=== PATIENT | female | born 1990 | race Caucasian/White ===

== ENCOUNTER 2024-03-20 16:32 | Inpatient (IN) | payer OTHER ==
[~2024-03-20] VITALS: Ht 149.9 cm; Wt 76.7 kg
--- NOTE | ~2024-03-20 | OR ---
[facility] [address] [place], [place] [address] Draft DATE OF OPERATION: 03/22/2024 SURGEON: Jacquie Rush MD IT APPLICATIONS DEVELOPER: Acosta. PREOPERATIVE DIAGNOSIS: Abdominal rectus hematoma. POSTOPERATIVE DIAGNOSIS: Abdominal rectus hematoma. PROCEDURE: Exploratory laparotomy, evacuation of hematoma. ANESTHESIA: General ET. ESTIMATED BLOOD LOSS: 50 mL with the procedure approximately 1500 mL of hematoma. DRAINS: Wallace catheter. INDICATIONS AND FINDINGS: The patient is a 33-year-old female, 1, para 1, who underwent primary section on March 20 by patient request complicated by preeclampsia with severe features. She initially seemed to do very well postoperatively, but she was maintained on magnesium because of her severe range blood pressures. However, her blood count a day and a half after surgery was found to have a hemoglobin of 5. CT was done which confirmed rectus hematoma. She is now being treated for this. At the time of surgery, exam under anesthesia revealed a fullness in the lower abdomen, right greater than left. DESCRIPTION OF PROCEDURE: The patient was prepped and draped in the supine position. The previous jaydon were removed. The subcu was opened easily and the fascial incision was cut and the sutures were removed. There was a large hematoma over the rectus. There was a small pumping vessel on the right lower aspect of the rectus and this was grasped with hemostats and cauterized. The abdomen was irrigated and inspected and there did not appear to be any PATIENT NAME: EDUAR NGUYEN OPERATIVE REPORT DATE OF : [birth year] REPORT #: [id number] PHYSICIAN: JACQUIE RUSH MD PCP: NO PRIMARY CARE PHYSICIAN REPORT IS CONFIDENTIAL AND NOT TO BE RELEASED WITHOUT AUTHORIZATION [address] [address] [place] other pumpers. The area was raw, however. Bleeding points were controlled with cautery. Tisseel was then sprayed over the rectus layer to further aid in hemostasis. Following this, the fascia was reclosed from each angle to the midline with a running suture of 0 Vicryl. The subcu was reapproximated with a running suture of 3-0 Vicryl. The skin was closed with jaydon. All sponge and needle counts were correct. She tolerated the procedure well and was taken to the recovery room in good condition. MD LEBRON ColinW/MODL /[id number] Copies: ~ PATIENT NAME: EDUAR NGUYEN OPERATIVE REPORT DATE OF : [birth year] REPORT #: [id number] PHYSICIAN: JACQUIE RUSH MD PCP: NO PRIMARY CARE PHYSICIAN REPORT IS CONFIDENTIAL AND NOT TO BE RELEASED WITHOUT AUTHORIZATION
[2024-03-20 16:52] LABS: HEMOGLOBIN 10.1 g/dL (12.0-18.0); MCHC 33.5 g/dl (30-36); MCV 89.4 fl (81-99); RBC 3.36 M/ul (4.3-5.7); RDW 16.4 (10.5-15.0)
[2024-03-20 17:03] LABS: CREATININE, SERUM 1.51 mg/dL (0.55-1.02)
[2024-03-20 17:17] LABS: CREATININE, RANDOM URINE 124.6 mg/dL (NOT ESTABLISHED)
[2024-03-20] MEDS ORDERED: LABETALOL HCL 100 MG/20 ML MDV ONE (17:22)
[2024-03-20] MEDS ORDERED: NIFEdipine 10 MG CAP ONE (17:26)
[2024-03-20] MEDS ORDERED: NIFEdipine 10 MG CAP PO ONE (17:30)
[2024-03-20] MEDS ORDERED: LABETALOL HCL 100 MG/20 ML MDV IV PRN (17:30)
[2024-03-20 17:50] LABS: PROTEIN/CREATININE RATIO 8.21 mg/mg (0.010-0.107)
[2024-03-20] MEDS ORDERED: LIDOCAINE 2% VISCOUS 6 ML SYR TOP ONE ×2 (18:00→19:45)
[2024-03-20] MEDS ORDERED: SOD+POT BICARB/CITRIC ACID 2 EA TABLET.EFF PO ONE (18:00)
[2024-03-20] MEDS ORDERED: LACTATED RINGER'S 1,000 ML IV PRN (18:00)
[2024-03-20 18:13] LABS: AMPHETAMINES, URINE NEGATIVE (NEGATIVE); BARBITURATES, URINE NEGATIVE (NEGATIVE); BENZODIAZEPINE, URINE NEGATIVE (NEGATIVE); BUPRENORPHINE, URINE NEGATIVE (NEGATIVE); CANNABINOID, URINE POSITIVE (NEGATIVE); COCAINE, URINE NEGATIVE (NEGATIVE); ECSTASY, URINE NEGATIVE (NEGATIVE); FENTANYL, URINE NEGATIVE (NEGATIVE); METHADONE, URINE NEGATIVE (NEGATIVE); OPIATES, URINE NEGATIVE (NEGATIVE); OXYCODONE, URINE NEGATIVE (NEGATIVE); PHENCYCLIDINE, URINE NEGATIVE (NEGATIVE)
[2024-03-20] MEDS ORDERED: MAGNESIUM SULFATE 500 ML IV SCH ×2 (18:15→19:45)
[2024-03-20] MEDS ORDERED: LACTATED RINGER'S 1,000 ML IV SCH ×2 (18:15→19:48)
[2024-03-20] MEDS ORDERED: CALCIUM GLUCONATE 1,000 MG/10 ML VIAL IV PRN ×2 (18:15→19:45)
[2024-03-20] MEDS ORDERED: TRANEXAMIC ACID IN NACL,ISO-OS 0 ML IV ONE (18:24)
[2024-03-20] MEDS ORDERED: LIDOCAINE HCL 2% 5 ML SDV ONE (18:24)
[2024-03-20] MEDS ORDERED: BUPIVACAINE 0.75% IN DEXTROSE 2 ML AMP ONE ×2 (18:24→18:48)
[2024-03-20] MEDS ORDERED: OXYTOCIN 10 UNITS/ML VIAL ONE (18:25)
[2024-03-20] MEDS ORDERED: SODIUM CHLORIDE 0.9% 40 ML IV ONE ×2 (18:25→19:27)
[2024-03-20] MEDS ORDERED: fentaNYL citrate 100 MCG/2 ML VIAL ONE (18:25)
[2024-03-20] MEDS ORDERED: MORPHINE SULFATE 1 MG/ML VIAL ONE (18:25)
[2024-03-20] MEDS ORDERED: ePHEDrine sulfate 50 MG/ML AMP ONE ×2 (18:25→19:14)
[2024-03-20] MEDS ORDERED: ondansetron HCL 4 MG/2 ML VIAL ONE (18:44)
[2024-03-20] MEDS ORDERED: DEXAMETHASONE SOD PHOS 4 MG/ML VIAL ONE ×2 (18:44→19:27)
[2024-03-20] MEDS ORDERED: CEFAZOLIN SODIUM 2 GM/20 ML SYR IV ONE (18:45)
[2024-03-20] MEDS ORDERED: Ropivacaine HCl 0.5% 30 ML VIAL ONE (19:27)
[2024-03-20] MEDS ORDERED: dexmedeTOMIDine HCl 200 MCG/2 ML VIAL ONE (19:27)
[2024-03-20] MEDS ORDERED: PHENYLEPHRINE HCL 10 MG/ML VIAL ONE (19:36)
[2024-03-20 19:40] LABS: ABO B; ANTIBODY SCREEN POSITIVE; RH NEGATIVE
[2024-03-20 19:41] LABS: ANTIBODY IDENTIFICATION ANTI-D
[2024-03-20] MEDS ORDERED: OXYCODONE HCL 5 MG TAB PO PRN (19:45)
[2024-03-20] MEDS ORDERED: METOCLOPRAMIDE HCL 10 MG/2 ML SDV IV PRN (19:45)
[2024-03-20] MEDS ORDERED: PROMETHAZINE HCL 25 MG SUPP PR PRN (19:45)
[2024-03-20] MEDS ORDERED: ondansetron HCL 4 MG/2 ML VIAL IV PRN ×2 (19:45→20:15)
[2024-03-20] MEDS ORDERED: PROMETHAZINE HCL 25 MG TAB PO PRN (19:45)
[2024-03-20] MEDS ORDERED: MEASLES,MUMPS&RUBELLA VACCINE 1 VIAL VIAL SUB-Q SCH (19:45)
[2024-03-20] MEDS ORDERED: PROCHLORPERAZINE EDISYLATE 10 MG/2 ML VIAL IV PRN (19:45)
[2024-03-20] MEDS ORDERED: bisacodyL 10 MG SUPP PR PRN (19:45)
[2024-03-20] MEDS ORDERED: OXYTOCIN/0.9 % SODIUM CHLORIDE 500 ML IV SCH (19:45)
[2024-03-20] MEDS ORDERED: IBUPROFEN 800 MG TAB PO SCH (20:00)
[2024-03-20] MEDS ORDERED: HYDROmorphone HCL 1 MG/ML SYR IV PRN (20:15)
[2024-03-20] MEDS ORDERED: fentaNYL citrate 50 MCG/ML SDV IV PRN (20:15)
[2024-03-20] MEDS ORDERED: diphenhydrAMINE HCL 50 MG/ML VIAL IV PRN (20:15)
[2024-03-20] MEDS ORDERED: MORPHINE SULFATE 4 MG/ML VIAL IV PRN (20:15)
[2024-03-20] MEDS ORDERED: IBLOOD GLUCOSE TEST STRIP 1 EA TEST VI PRN (20:15)
[2024-03-20] MEDS ORDERED: NALOXONE HCL 0.4 MG SYR IV PRN ×2 (20:15)
[2024-03-20] MEDS ORDERED: SENNOSIDES/DOCUSATE 1 EA TAB PO SCH (21:00)
[2024-03-20] MEDS ORDERED: SIMETHICONE 125 MG TABLET CHEWABLE PO SCH (21:00)
--- NOTE | 2024-03-20 22:22 | NUR ---
03/20/242221 Emmanuel De Anda 1949-PT ARRIVED BACK TO [facility] RM 101 AWAKE ON RA WITH SATS GREATER THAN 95%. PT WITH 20G IV IN L WRIST WITH LR W/PIT INFUSING. NO S/SX INFILTRATION. RICKI CDI. PT HAS 2ND IV SITE IN LFA, 18G, INFUSING MAG WITH LR PIGGYBACK. RICKI CDI. NO S/SX INFILTRATION. 1956-VS STABLE. PT DENIES PAIN OR NAUSEA. FUNDAL CHECK COMPLETED. SPINAL AT UMBILLICUS. HOB ELEVATED SLIGHTLY TO APPROX 15 DEGREES AT PT REQUEST. 2002-PT ASKING FOR WATER. DR. DAVIES APPROVES. PT TAKING SMALL SIPS. APPEARS TO BE TOLERATING WELL. 2004-SATS REMAIN STABLE ON RA AT 95% OR GREATER. RR EVEN AND UNLABORED. PT CONT TO DENY PAIN OR NAUSEA. DR. DAVIES AT PTS BEDSIDE SPEAKING WITH PT. INSTRUCTIONS RECEIVED TO NOTIFY DR. DAVIES IF BP'S GREATER THAN 160/110. 2006-PTS FRIEND ARRIVED TO ROOM AND BROUGHT PT SOME OF HER PERSONAL BELONGINGS FROM HOME. REMAINS IN ROOM. PT SIG OTHER IN AND OUT OF ROOM AND NURSERY WITH BABY PROVIDING PT WITH UPDATES AND PICTURES. 2022-NEW BAG OF 30 UNITS IV PIT STARTED IN 5OOML LR. SATS CONT TO REMAIN STABLE ON RA AT 95% OR GREATER. DENIES PAIN AND NAUSEA. PT VISITING WITH FRIEND. EDUCATION PROVIDED ON FUNDAL CHECKS, EPIDURAL, DEEP BREATHING AND COUGHING, AND LI CATH. 2038-SMALL FIFTY CENT PIECE SIZE CLOT NOTED WITH FUNDAL CHECK. AMANDEEP PAD REPLACED. PAD WEIGHED, 76ML EBL. [facility] RN UPDATED. 2044-ADDTIONAL FUNDAL CHECK PERFORMED. NOTED TO BE FIRM, -2 BELOW UMBILLICUS, MIDLINE, LIGHT RUBRA LOCHIA W/SMALL CLOT, AND NO FOUL ODOR NOTED. LI DRAINING TO GRAVITY. URINE NOTED TO BE CLR, LIGHT YELLOW. 2099-FUNDAL CHECK COMPLETED. FUNDUS IS FIRM, -2 BELOW UMBILLICUS, MIDLINE, LIGHT RUBRA LOCHIA, AND NO ODOR NOTED. SPINAL NOW AT INGUINAL LEVEL. PT REMAINS UNABLE TO WIGGLE TOES WHEN TRYING. PT DENIES PAIN OR NAUSEA WHEN ASKED. VSS. IVS CONT TO INFUSE WITHOUT ISSUES. LI CONT TO DRAIN TO GRAVITY WITH PALE, CLR, YELLOW URINE. C-SEC INCISION RICKI THURMAN CDI. 2104-REPORT GIVEN TO [facility]BC RN. PASSED ALONG BP NOTIFICATION PARAMETERS TO [facility]BC RN. CALL LIGHT GIVEN, BED IN LOW POSITION, WHEELS LOCKED, SIDERAILS UP X2, AND FRIEND REMAINS AT BEDSIDE.
[2024-03-20 22:31] VITALS: BP 154/80
[2024-03-20] MEDS ORDERED: ACETAMINOPHEN 500 MG TAB PO SCH (23:55)
[2024-03-21] MEDS ORDERED: NIFEdipine 10 MG CAP PO PRN ×3 (02:30)
[2024-03-21] MEDS ORDERED: NIFEdipine 10 MG CAP ONE (03:37)
[2024-03-21] MEDS ORDERED: LACTATED RINGER'S 1,000 ML IV SCH (05:00)
[2024-03-21 05:35] LABS: HEMATOCRIT 30.1 % (35.0-50.0); HEMOGLOBIN 10.1 g/dL (12.0-18.0); MCH 29.9 (27-36); MCHC 33.5 g/dl (30-36); MCV 89.3 fl (81-99); RBC 3.38 M/ul (4.3-5.7); RDW 15.9 (10.5-15.0)
[2024-03-21 05:56] LABS: ALBUMIN 1.9 g/dL (3.4-5.0); ALBUMIN/GLOBULIN RATIO 0.5 (1.1-2.4); BILIRUBIN, TOTAL 0.1 ng/dL (0.2-1.0); BUN/CREATININE RATIO 17.39 (6.0-28.6); CALCIUM 7.9 mg/dL (8.5-10.1); CREATININE, SERUM 1.38 mg/dL (0.55-1.02); PROTEIN, TOTAL 5.7 g/dL (6.4-8.2)
[2024-03-21 06:30] LABS: ABO B; ANTIBODY SCREEN POSITIVE; FETAL HEMOGLOBIN SCREEN NEGATIVE; RH NEGATIVE
[2024-03-21 06:31] LABS: ANTIBODY IDENTIFICATION ANTI-D; RHIG STATUS NOT A CANDIDATE
[2024-03-21] MEDS ORDERED: ENOXAPARIN SODIUM 40 MG/0.4 ML SYR SUB-Q SCH (09:00)
[2024-03-21] MEDS ORDERED: NICOTINE 14 MG/24 HR 1 EA TDSY TD SCH (09:00)
--- NOTE | 2024-03-21 09:06 | PR ---
[facility] [address] [facility] [place], [place] [address] Signed PP Progress Notes Datetime Report Generated by CPCrystal: 03/21/2024 09:06 SUBJECTIVE: [id number] Pain: Within Normal Limits Nausea/Vomiting: Denies Flatus: No Vital Signs: [id number] Vital Signs: Reviewed Notable Details: HTN--not severe Cardiovascular: Normal Respiratory: Normal Abdomen/Uterus: Abnormal Lochia: Normal Vulva/Perineum: Not Done Breasts: Not Done CVA Tenderness: Not Done Extremities: Normal Incision: Normal Progress: Normal Exam Comments: Abdomen with active BS. Fundus firm, NT @ U-2. H/H 10.1/30.1, WBC 17, plat 124k (same) Na 127, K 5, BUN/Creat 24/1.38 Nl LFTs Mag 6 IMPRESSION/PLAN/PROCEDURES: [id number] Impression: Normal Progression; Induced Hypertension Other Impression: Smoker Other Plans: Continue mag, begin pumping Progress Notes: BPs still elevated though no severe range since 0700. Will continue mag through this evening and reassess. Desires nicotine patch--will start Signing Physician: Fay Rush MD Copies: ~ *Electronically Signed* 03/21/24905 FAY RUSH MD PATIENT NAME: EDUAR NGUYEN PROGRESS NOTE DATE OF : [birth year] PHYSICIAN: FAY RUSH MD RPT #: [id number] REPORT IS CONFIDENTIAL AND NOT TO BE RELEASED WITHOUT AUTHORIZATION
[2024-03-21] MEDS ORDERED: HYDROmorphone HCL 2 MG TAB PO PRN (17:15)
--- NOTE | 2024-03-21 18:01 | OR ---
[facility] [address] [place], [place] [address] Signed DATE OF OPERATION: 03/20/2024 SURGEON: Fay Rush MD FUEL CELL TEST ENGINEER: SARAY Acosta DO PREOPERATIVE DIAGNOSIS: 36+ week with severe preeclampsia, desire for primary section. POSTOPERATIVE DIAGNOSIS: 36+ week with severe preeclampsia, desire for primary section, delivered. PROCEDURE: Primary section with low segment transverse uterine incision. ANESTHESIA: Spinal. ESTIMATED BLOOD LOSS: 500 mL. DRAINS: Wallace catheter. INDICATIONS AND FINDINGS: The patient is a 33-year-old female, 1, para 0, who was admitted at 36 and 4/7 weeks by late ultrasound for preeclampsia with severe features. The patient desired primary section. Her has been complicated by late registration, history of drug use, smoking, pyelonephritis during the as well as history of chronic kidney disease from polycystic kidneys. Unfortunately, her baseline kidney function is unknown. Her kidney function has significantly worsened, however, since her pyelonephriti. Her creatinine at her discharge was 1.09 and is now 1.5. Platelets also declined to 124,000. She did receive course of steroids at approximately 30 weeks because of the possibility she might require delivery at that time, but has not received them since then. At the time of surgery, she was delivered a little boy via lower segment transverse uterine incision from the ROT position with Apgars of 7 and 8 and weight of 5 pounds 6 ounces. The uterus, tubes, ovaries, and placenta appeared normal. The placenta did appear calcified. Electronically Signed By: FAY RUSH MD 03/21/24 1804 PATIENT NAME: EDUAR NGUYEN OPERATIVE REPORT DATE OF : 92 REPORT #: [id number] PHYSICIAN: FAY RUSH MD PCP: NO PRIMARY CARE PHYSICIAN REPORT IS CONFIDENTIAL AND NOT TO BE RELEASED WITHOUT AUTHORIZATION [facility] [address] [place], [place] [address] Signed DESCRIPTION OF PROCEDURE: The patient was prepped and draped in the supine position. A Pfannenstiel skin incision was made and carried down through the fascia. The incision was extended laterally. The inferior and superior fascial flaps were then created. The muscles were bluntly divided and the peritoneum opened bluntly and extended bluntly. The Gustavo retractor was placed. The uterine incision was made at the upper aspect of the peritoneal reflection. The baby was delivered with the above findings and handed off to the pediatric staff in attendance. The placenta was expressed and the uterus explored with a lap tape assuring no remaining fragments. The edges of the incision were identified. The uterus was closed in 2 layers using 0 Monocryl. The first layer was a running locking stitch and the second was a vertical imbricating stitch. Good hemostasis was noted. The peritoneum was then closed in a running suture of 3-0 Vicryl after removal of the retractor. The muscles were brought together with interrupted sutures of 0 Vicryl. Bleeding points were controlled with cautery. The fascia was closed from each angle to the midline with a running suture of 0 Vicryl. The subcu space was closed with a running suture of 3-0 Vicryl and the skin was closed with jaydon. All sponge and needle counts were correct. She tolerated the procedure well and was taken to the recovery room in good condition. Fay Rush MD PJW/MODL /[id number] Copies: ~ Electronically Signed By: FAY RUSH MD 03/21/24 1801 PATIENT NAME: EDUAR NGUYEN OPERATIVE REPORT DATE OF : [birth year] REPORT #: [id number] PHYSICIAN: FAY RUSH MD PCP: NO PRIMARY CARE PHYSICIAN REPORT IS CONFIDENTIAL AND NOT TO BE RELEASED WITHOUT AUTHORIZATION
--- NOTE | 2024-03-21 18:45 | PR ---
[facility] [address] [facility] [place], [place] [address] Signed PP Progress Notes Datetime Report Generated by CPCrystal: 03/21/2024 18:45 SUBJECTIVE: [id number] Pain: Within Normal Limits Pain Comments: RUQ pain improving. Nausea/Vomiting: Present Flatus: No Vital Signs: [id number] Vital Signs: Reviewed Notable Details: HTN--not severe Cardiovascular: Normal Respiratory: Normal Abdomen/Uterus: Abnormal Lochia: Normal Vulva/Perineum: Not Done Breasts: Not Done CVA Tenderness: Not Done Extremities: Normal Incision: Normal Progress: Normal Exam Comments: Abdomen soft but tender in RUQ. Fundus firm, NT @ U-2. Last mag level 7.1 IMPRESSION/PLAN/PROCEDURES: [id number] Impression: Induced Hypertension Other Impression: Abdominal pain--suspect gas Other Plans: heat to abdomen, stop mag Progress Notes: BPs doing better and no severe range BPs today. I suspect some of her symptoms are related to mag and it is likely contributing to bowel inertia and nausea. Lab unable to get mag level tonight so will stop mag know and observe her BPs and other symptoms. Will repeat CBC, BMP in the am. Signing Physician: Fay Rush MD Copies: ~ *Electronically Signed* 03/21/24 5166 FAY RUSH MD PATIENT NAME: EDUAR NGUYEN PROGRESS NOTE DATE OF : 92 PHYSICIAN: FAY RUSH MD RPT #: [id number] REPORT IS CONFIDENTIAL AND NOT TO BE RELEASED WITHOUT AUTHORIZATION
[2024-03-22 05:40] LABS: BASOPHILS 0.3 % (0-2); EOSINOPHILS 0.8 % (0-6); HEMATOCRIT 14.7 % (35.0-50.0); MCH 30.9 (27-36); MCHC 34.1 g/dl (30-36); MCV 90.5 fl (81-99); MONOCYTES 6.4 % (0-12); NEUTROPHILS 74.5 % (39-80); PLATELET COUNT 151 K/uL (140-440); RBC 1.62 M/ul (4.3-5.7); RDW 16.5 (10.5-15.0)
[2024-03-22 05:50] LABS: ANION GAP 13.2 (7-21); BUN/CREATININE RATIO 17.64 (6.0-28.6); CALCIUM 7.2 mg/dL (8.5-10.1); CREATININE, SERUM 1.7 mg/dL (0.55-1.02); POTASSIUM 5.2 mmol/L (3.5-5.1)
[2024-03-22 06:12] LABS: IS CROSSMATCH COMPATIBLE
--- NOTE | 2024-03-22 06:37 | PR ---
[facility] [address] [facility] [place], [place] [address] Signed PP Progress Notes Datetime Report Generated by SONIA: 03/22/2024 06:37 SUBJECTIVE: [id number] Pain: Abnormal Pain Comments: c/o LUQ pain, dizzy when sitting up Nausea/Vomiting: Present Flatus: No Vital Signs: [id number] Vital Signs: Reviewed Notable Details: HTN--not severe Cardiovascular: Normal Respiratory: Normal Abdomen/Uterus: Abnormal Lochia: Normal Vulva/Perineum: Not Done Breasts: Not Done CVA Tenderness: Not Done Extremities: Normal Incision: Normal Progress: Normal Exam Comments: Abdomen with occ BS. H/H 5.0/14.7, plat 151k Na 131, K 5.2, BUN 30, Creat 1.70 IMPRESSION/PLAN/PROCEDURES: [id number] Impression: Induced Hypertension Other Impression: Severe anemia Other Plans: Blood tx now xs 2 units, CT scan abd/pelvis Procedures: Transfusion Other Procedures: CT Progress Notes: Pt w/ severe anemia this am and suspect intraabdominal bleeding though her other VS remain stable w/o tachycardia, oliguria, hypotension which has delayed her dx. Will transfuse now and do CT of abdomen and pelvis to determine source. This may mean another surgery for her and this was discussed w/ patient and partner. Elevated creatinine--worsening since yesterday and may reflect the decreased perfusion from her severe anemia. Further treatment will depend on the CT results. Signing Physician: Fay Rush MD *Electronically Signed* 03/22/24 0637 FAY RUSH MD PATIENT NAME: EDUAR NGUYEN PROGRESS NOTE DATE OF : 92 PHYSICIAN: FAY RUSH MD RPT #: [id number] REPORT IS CONFIDENTIAL AND NOT TO BE RELEASED WITHOUT AUTHORIZATION [address] [place], [place] [address] Signed Copies: ~ *Electronically Signed* 03/22/24 06 FAY RUSH MD PATIENT NAME: EDUAR NGUYEN PROGRESS NOTE DATE OF : 92 PHYSICIAN: FAY RUSH MD RPT #: [id number] REPORT IS CONFIDENTIAL AND NOT TO BE RELEASED WITHOUT AUTHORIZATION
--- NOTE | 2024-03-22 08:33 | PR ---
[facility] [address] [facility] [place], [place] [address] Signed PP Progress Notes Datetime Report Generated by SONIA: 03/22/2024 08:33 SUBJECTIVE: [id number] Pain: Abnormal Pain Comments: pain approx same Nausea/Vomiting: Present Flatus: No Vital Signs: [id number] Vital Signs: Reviewed Notable Details: continued HTN Cardiovascular: Normal Respiratory: Normal Abdomen/Uterus: Abnormal Lochia: Normal Vulva/Perineum: Not Done Breasts: Not Done CVA Tenderness: Not Done Extremities: Normal Incision: Normal Progress: Normal Exam Comments: Abdomen with occ BS. H/H 5.0/14.7, plat 151k Na 131, K 5.2, BUN 30, Creat 1.70 IMPRESSION/PLAN/PROCEDURES: [id number] Impression: Induced Hypertension Other Impression: rectus hematoma Other Plans: check hemogram now, to OR Procedures: Transfusion Other Procedures: CT Progress Notes: Imaging has returned and c/w rectus hematoma. Will proceed w/ return to the OR. Discussed w/ pt. Will repeat CBC now and type and cross for 2 more units. Signing Physician: Fay Rush MD Copies: ~ *Electronically Signed* 03/22/24 0833 FAY RUSH MD PATIENT NAME: EDUAR NGUYEN PROGRESS NOTE DATE OF : 92 PHYSICIAN: FAY RUSH MD RPT #: [id number] REPORT IS CONFIDENTIAL AND NOT TO BE RELEASED WITHOUT AUTHORIZATION
[2024-03-22 08:44] LABS: HEMATOCRIT 24.7 % (35.0-50.0); HEMOGLOBIN 8.2 g/dL (12.0-18.0); MCH 29.3 (27-36); MCHC 33.2 g/dl (30-36); MCV 88.2 fl (81-99); RBC 2.8 M/ul (4.3-5.7); RDW 15.6 (10.5-15.0)
[2024-03-22] MEDS ORDERED: fentaNYL citrate 100 MCG/2 ML VIAL ONE (08:57)
[2024-03-22] MEDS ORDERED: KETAMINE in NS 50 MG/5 ML SYR ONE (08:57)
[2024-03-22] MEDS ORDERED: MIDAZOLAM HCL 2 MG/2 ML VIAL ONE (08:57)
[2024-03-22] MEDS ORDERED: MORPHINE SULFATE 1 MG/ML VIAL ONE (08:57)
[2024-03-22] MEDS ORDERED: LIDOCAINE HCL 2% 5 ML SDV ONE ×2 (08:58)
[2024-03-22] MEDS ORDERED: propofoL 200 MG/20 ML VIAL ONE (08:58)
[2024-03-22] MEDS ORDERED: ROCURONIUM BROMIDE 50 MG/5 ML SYR ONE (08:58)
[2024-03-22] MEDS ORDERED: PHENYLEPHRINE HCL 10 MG/ML VIAL ONE (09:16)
[2024-03-22] MEDS ORDERED: ePHEDrine sulfate 50 MG/ML AMP ONE (09:21)
[2024-03-22] MEDS ORDERED: ondansetron HCL 4 MG/2 ML VIAL ONE (09:53)
[2024-03-22] MEDS ORDERED: DEXAMETHASONE SOD PHOS 4 MG/ML VIAL ONE ×2 (09:53→10:05)
[2024-03-22 10:04] LABS: ALBUMIN 1.4 g/dL (3.4-5.0); ALBUMIN/GLOBULIN RATIO 0.5 (1.1-2.4); ANION GAP 12.4 (7-21); BILIRUBIN, TOTAL 0.2 ng/dL (0.2-1.0); BUN/CREATININE RATIO 17.36 (6.0-28.6); CALCIUM 7.1 mg/dL (8.5-10.1); CREATININE, SERUM 1.67 mg/dL (0.55-1.02); POTASSIUM 4.4 mmol/L (3.5-5.1); PROTEIN, TOTAL 4.2 g/dL (6.4-8.2)
[2024-03-22] MEDS ORDERED: Ropivacaine HCl 0.5% 30 ML VIAL ONE (10:04)
[2024-03-22] MEDS ORDERED: SODIUM CHLORIDE 0.9% 20 ML IV ONE (10:04)
[2024-03-22 10:05] LABS: PARTIAL THROMBOPLASTIN TIME 28.9 Sec (22.9-41.3)
[2024-03-22] MEDS ORDERED: dexmedeTOMIDine HCl 200 MCG/2 ML VIAL ONE (10:05)
[2024-03-22 10:06] LABS: INR 0.98 (0.80-1.30); PROTIME 12.3 Sec (11.2-14.2)
[2024-03-22] MEDS ORDERED: TRANEXAMIC ACID 1,000 MG/10 ML AMP ONE (10:06)
[2024-03-22] MEDS ORDERED: ondansetron HCL 4 MG/2 ML VIAL IV PRN ×2 (10:15)
[2024-03-22] MEDS ORDERED: MEASLES,MUMPS&RUBELLA VACCINE 1 VIAL VIAL SUB-Q SCH (10:15)
[2024-03-22] MEDS ORDERED: PROMETHAZINE HCL 25 MG TAB PO PRN (10:15)
[2024-03-22] MEDS ORDERED: LIDOCAINE 2% VISCOUS 6 ML SYR TOP ONE (10:15)
[2024-03-22] MEDS ORDERED: bisacodyL 10 MG SUPP PR PRN (10:15)
[2024-03-22] MEDS ORDERED: METOCLOPRAMIDE HCL 10 MG/2 ML SDV IV PRN (10:15)
[2024-03-22] MEDS ORDERED: NALOXONE HCL 0.4 MG SYR IV PRN (10:15)
[2024-03-22] MEDS ORDERED: diphenhydrAMINE HCL 50 MG/ML VIAL IV PRN (10:15)
[2024-03-22] MEDS ORDERED: PROMETHAZINE HCL 25 MG SUPP PR PRN (10:15)
[2024-03-22] MEDS ORDERED: HYDROmorphone HCL 1 MG/ML SYR IV PRN (10:15)
[2024-03-22] MEDS ORDERED: PROCHLORPERAZINE EDISYLATE 10 MG/2 ML VIAL IV PRN (10:15)
[2024-03-22] MEDS ORDERED: SUGAMMADEX SODIUM 200 MG/2 ML ML ONE (10:17)
[2024-03-22] MEDS ORDERED: LACTATED RINGER'S 1,000 ML IV SCH (10:19)
[2024-03-22] MEDS ORDERED: HYDROmorphone HCL 2 MG TAB PO PRN (10:30)
[2024-03-22] MEDS ORDERED: ACETAMINOPHEN 500 MG TAB PO SCH (10:30)
--- NOTE | 2024-03-22 10:46 | NUR ---
03/22/24 Priti6 Mirta Stacy 1027- PT PRESENTS TO PACU, SEMI BEACH POSITION. REACTIVE TO STIMULUS BUT DOESN'T STAY AWAKE. PT HAS INTERMITTENT SNORING RESPIRATIONS, 6L O2 PER MASK. PT IS ABLE TO TAKE DEEP BREATHS. LR INFUSING TO LW 20 G IV. PT ALSO HAS PATENT 20 G IV TO RW, STARTED IN THE OR BY PROCESS MANUFACTURING ENGINEER, AND 18 G TO LFA. ABD SOFT, NON DISTENDED. DRESSING IN PLACE TO LOW ABD, CDI. ALL MONITORS APPLIED. LI CATHETER IN PLACE DRAINING CLEAR, PALE YELLOW URINE. WILL CONTINUE TO MONITOR.
[2024-03-22] MEDS ORDERED: SIMETHICONE 125 MG TABLET CHEWABLE PO SCH (11:00)
--- NOTE | 2024-03-22 11:44 | NUR ---
VISITED [facility] TO PROVIDE ASSURANCE OF PRAYER. PT JUST RETURNED FROM SURGERY SO NOT AVAILABLE FOR LONGER VISIT. PT EXPRESSED GRATITUDE.
[2024-03-22] MEDS ORDERED: SENNOSIDES/DOCUSATE 1 EA TAB PO SCH (21:00)
[2024-03-23 05:22] LABS: HEMOGLOBIN 6.1 g/dL (12.0-18.0); MCH 29.5 (27-36); MCHC 33.6 g/dl (30-36); MCV 87.8 fl (81-99); PLATELET COUNT 119 K/uL (140-440); RBC 2.05 M/ul (4.3-5.7); RDW 16.2 (10.5-15.0)
[2024-03-23 05:38] LABS: ALBUMIN 1.4 g/dL (3.4-5.0); ALBUMIN/GLOBULIN RATIO 0.5 (1.1-2.4); BILIRUBIN, TOTAL 0.1 ng/dL (0.2-1.0); BUN/CREATININE RATIO 20.28 (6.0-28.6); CALCIUM 7.3 mg/dL (8.5-10.1); CREATININE, SERUM 1.38 mg/dL (0.55-1.02); PROTEIN, TOTAL 4.2 g/dL (6.4-8.2)
--- NOTE | 2024-03-23 08:25 | PR ---
[facility] [address] [place], [place] [address] Signed PP Progress Notes Datetime Report Generated by SONIA: 03/23/2024 08:24 SUBJECTIVE: [id number] Pain: Within Normal Limits Pain Comments: pain approx same Nausea/Vomiting: Denies Flatus: Yes Bowel Movement: No Vital Signs: [id number] Vital Signs: Reviewed Notable Details: continued HTN--not severe Cardiovascular: Normal Respiratory: Normal Abdomen/Uterus: Abnormal Lochia: Normal Vulva/Perineum: Not Done Breasts: Not Done CVA Tenderness: Not Done Extremities: Normal Incision: Normal Progress: Abnormal Exam Comments: Abdomen w/ active BS. Fundus firm, NT @ U-1. H/H 6.1/18.0, WBC 11.3, Plat 119k Na 136, K 5.0, BUN/Creat 28/1.38 IMPRESSION/PLAN/PROCEDURES: [id number] Impression: Induced Hypertension Other Impression: anemia Other Plans: transfuse 2 units, ambulate, cap IVF, D/C Wallace Procedures: Transfusion Other Procedures: CT Progress Notes: Much improved today. She is having minimal pain. She has tolerated standing though she has only stood twice. Her H/H has decreased again but suspect this is related to equilibration as there is no evidence of any active bleeding. I also suspect she was hemoconcentrated on her admit w/ her ongoing preeclampsia. Anemia--transfuse 2 units Preeclampsia--continue Procardia XL 30 mg bid Signing Physician: Fay Rush MD *Electronically Signed* 03/23/24823 FAY RUSH MD PATIENT NAME: EDUAR NGUYEN PROGRESS NOTE DATE OF : 92 PHYSICIAN: FAY RUSH MD RPT #: [id number] REPORT IS CONFIDENTIAL AND NOT TO BE RELEASED WITHOUT AUTHORIZATION [address] [facility] [place] [place] [address] Signed Copies: ~ *Electronically Signed* 03/23/24823 FAY RUSH MD PATIENT NAME: EDUAR NGUYEN PROGRESS NOTE DATE OF : 92 PHYSICIAN: FAY RUSH MD RPT #: [id number] REPORT IS CONFIDENTIAL AND NOT TO BE RELEASED WITHOUT AUTHORIZATION
[2024-03-23] MEDS ORDERED: LABETALOL HCL 100 MG/20 ML MDV ONE (13:02)
[2024-03-23] MEDS ORDERED: LABETALOL HCL 100 MG/20 ML MDV IV PRN ×6 (13:30→18:30)
[2024-03-23] MEDS ORDERED: hydrALAZINE HCL 20 MG/ML VIAL IV PRN (13:30)
[2024-03-23] MEDS ORDERED: IBUPROFEN 800 MG TAB PO SCH (16:00)
[2024-03-23 18:08] LABS: HEMATOCRIT 26.6 % (35.0-50.0); HEMOGLOBIN 9.2 g/dL (12.0-18.0); MCH 30.1 (27-36); MCHC 34.7 g/dl (30-36); MCV 86.9 fl (81-99); RBC 3.07 M/ul (4.3-5.7); RDW 15.3 (10.5-15.0)
[2024-03-24 05:33] LABS: HEMATOCRIT 26.4 % (35.0-50.0); HEMOGLOBIN 9.1 g/dL (12.0-18.0); MCH 30.2 (27-36); MCHC 34.5 g/dl (30-36); MCV 87.5 fl (81-99); RBC 3.01 M/ul (4.3-5.7); RDW 15.7 (10.5-15.0)
[2024-03-24 05:48] LABS: ALBUMIN 1.5 g/dL (3.4-5.0); ALBUMIN/GLOBULIN RATIO 0.45 (1.1-2.4); ANION GAP 13.4 (7-21); BILIRUBIN, TOTAL 0.2 ng/dL (0.2-1.0); BUN/CREATININE RATIO 19.29 (6.0-28.6); CALCIUM 7.6 mg/dL (8.5-10.1); CREATININE, SERUM 1.14 mg/dL (0.55-1.02); POTASSIUM 4.4 mmol/L (3.5-5.1); PROTEIN, TOTAL 4.8 g/dL (6.4-8.2)
[2024-03-24] MEDS ORDERED: IBUPROFEN 800 MG TAB PO SCH ×2 (06:00→08:00)
[2024-03-24] MEDS ORDERED: ACETAMINOPHEN 500 MG TAB PO SCH ×2 (06:00→08:00)
--- NOTE | 2024-03-24 09:08 | PR ---
[facility] [address] [place], [place] [address] Signed PP Progress Notes Datetime Report Generated by SONIA: 03/24/2024 09:08 SUBJECTIVE: [id number] Pain: Within Normal Limits Pain Comments: pain approx same Nausea/Vomiting: Denies Flatus: Yes Bowel Movement: Yes Vital Signs: [id number] Vital Signs: Reviewed Notable Details: no severe range for approx 9 hrs Cardiovascular: Normal Respiratory: Normal Abdomen/Uterus: Abnormal Lochia: Normal Vulva/Perineum: Not Done Breasts: Not Done CVA Tenderness: Not Done Extremities: Normal Incision: Normal Progress: Normal Exam Comments: Abdomen w/ active BS. Fundus firm, NT @ U-2. H/H 9.1/26.4, WBC 9.4, 125k Na 137, K 4.4, BUN/Creat 22/1.14 IMPRESSION/PLAN/PROCEDURES: [id number] Impression: Induced Hypertension Other Impression: Anemia Other Plans: Hospitalist consult Procedures: Transfusion Other Procedures: CT Progress Notes: Much improved today. She has been up and around as well as a shower and is tolerating it well. HTN--manageable at this time w/o any severe range pressures since approx 2400. Will consult medicine as feel she likely is chronic HTN w/ the superimposed preeclampsia. I am wondering about her discharge medication for her ongiong treatment. Anemia--stable at this time after the transfusion of 2 units yesterday. Signing Physician: Fay Rush MD *Electronically Signed* 03/24/24 0908 FAY RUSH MD PATIENT NAME: EDUAR NGUYEN PROGRESS NOTE DATE OF : 92 PHYSICIAN: FAY RUSH MD RPT #: [id number] REPORT IS CONFIDENTIAL AND NOT TO BE RELEASED WITHOUT AUTHORIZATION [address] [place] [address] Signed Copies: ~ *Electronically Signed* 03/24/24 09 AFY RUSH MD PATIENT NAME: EDUAR NGUYEN PROGRESS NOTE DATE OF : 92 PHYSICIAN: FAY RUSH MD RPT #: [id number] REPORT IS CONFIDENTIAL AND NOT TO BE RELEASED WITHOUT AUTHORIZATION
[2024-03-24 18:00] VITALS: BP 155/95
[2024-03-24] MEDS ORDERED: METOPROLOL SUCCINATE 25 MG TABCR PO SCH (18:00)
[2024-03-24] MEDS ORDERED: AMLODIPINE BESYLATE 5 MG TAB PO SCH (18:00)
--- NOTE | 2024-03-25 10:17 | PR ---
[facility] [address] [place], [place] [address] Signed PP Progress Notes Datetime Report Generated by CPN: 03/25/2024 10:16 SUBJECTIVE: [id number] Pain: Within Normal Limits Pain Comments: pain approx same Nausea/Vomiting: Denies Flatus: Yes Bowel Movement: Yes Vital Signs: [id number] Vital Signs: Reviewed Notable Details: HTN--not severe range Cardiovascular: Normal Respiratory: Normal Abdomen/Uterus: Abnormal Lochia: Normal Vulva/Perineum: Not Done Breasts: Not Done CVA Tenderness: Not Done Extremities: Normal Incision: Normal Progress: Normal Exam Comments: Fundus firm, NT @ U-2. IMPRESSION/PLAN/PROCEDURES: [id number] Impression: Normal Progression; Induced Hypertension Other Impression: Anemia Plan: Remove [place]; Discharge Other Plans: Hospitalist consult Procedures: Transfusion; Rub[place] Other Procedures: CT Progress Notes: Doing well on her new medication regimen. Baby still not able to pass carseat challenge. Will discharge to boarder status and she is amenable to this. Signing Physician: Fay Rush MD Copies: ~ *Electronically Signed* 03/25/24 1016 FAY RUSH MD PATIENT NAME: EDUAR NGUYEN PROGRESS NOTE DATE OF : 92 PHYSICIAN: FAY RUSH MD RPT #: [id number] REPORT IS CONFIDENTIAL AND NOT TO BE RELEASED WITHOUT AUTHORIZATION
[2024-03-28 13:15] LABS: RBC, LEUKOREDUCED 18212411895600U; RBC, LEUKOREDUCED 18212412203800M; RBC, LEUKOREDUCED 18212412953900G; RBC, LEUKOREDUCED 18212413220800N
[2024-03-28 13:16] LABS: IS CROSSMATCH COMPATIBLE
== END 2024-03-25 11:20 | disposition home or self-care (01) | DRG 787 ==
LOC: FBCO 16:32 → FBC 17:50 → MS 17:50 → FBC 17:50 → MS 03-22 20:33 → FBC 03-22 21:32
PROVIDERS: ADMIT Obstetrics & Gynecology; ATTEND Obstetrics & Gynecology
PROC: 0W3F0ZZ Control Bleeding in Abdominal Wall, Open Approach (ICD-10-PCS; 2024-03-20)
PROC: 0J980ZZ Drainage of Abdomen Subcutaneous Tissue and Fascia, Open Approach (ICD-10-PCS; 2024-03-20)
PROC: 30233N1 Transfusion of Nonautologous Red Blood Cells into Peripheral Vein, Percutaneous Approach (ICD-10-PCS; 2024-03-20)
PROC: 10D00Z1 Extraction of Products of Conception, Low, Open Approach (ICD-10-PCS; principal; 2024-03-20 18:27)
DX: O14.14 Severe pre-eclampsia complicating childbirth (principal); O98.32 Other infections with a predominantly sexual mode of transmission complicating childbirth; Z3A.36 36 weeks gestation of pregnancy; Z37.0 Single live birth; O60.14X0 Preterm labor third trimester with preterm delivery third trimester, not applicable or unspecified; O90.2 Hematoma of obstetric wound; O99.334 Smoking (tobacco) complicating childbirth; F17.210 Nicotine dependence, cigarettes, uncomplicated; O90.81 Anemia of the puerperium; O99.324 Drug use complicating childbirth; F12.90 Cannabis use, unspecified, uncomplicated; F14.90 Cocaine use, unspecified, uncomplicated; A60.09 Herpesviral infection of other urogenital tract
CPT/HCPCS: 00840; 01961; 36415; 74176; 76942; 80048; 80053; 80307; 82565; 82570; 83030; 83735; 84156; 84450; 84520; 84550; 85025; 85027; 85060; 85384; 85610; 85730; 86850; 86870; 86900; 86901; 86922; 90707; A9270; J0360; J0690; J1050; J1100; J1650; J2001; J2250; J2274; J2371; J2405; J2590; J2704; J2765; J2790; J2795; J3010; J3475; J3490; J7121; P9016

== ENCOUNTER 2025-06-27 19:49 | Observation (INO) | payer OTHER ==
[~2025-06-27] VITALS: Ht 152.4 cm; Wt 56.4 kg
[2025-06-27] MEDS ORDERED: KETOROLAC TROMETHAMINE 15 MG/ML VIAL IV ONE (20:30)
[2025-06-27] MEDS ORDERED: SODIUM CHLORIDE 0.9% 1,000 ML IV PRN (20:45)
[2025-06-27 20:56] LABS: BLOOD/HGB, URINE LARGE (Negative); KETONE, URINE NEGATIVE (Negative); LEUK ESTERASE, URINE MODERATE (negative); NITRITE, URINE NEGATIVE (negative)
[2025-06-27 21:06] LABS: BASOPHILS 0.2 % (0.1-1.2); EOSINOPHILS 0.2 % (0.7-5.8); LYMPHOCYTES 3.7 % (19.3-51.7); MCH 28.0 PG (25.6-32.2); MCHC 33.1 g/dL (32.2-35.5); MCV 84.5 fL (79.4-94.8); MONOCYTES 7.8 % (4.7-12.5); NEUTROPHILS 87.2 % (34.0-71.1); RBC 4.07 M/uL (3.93-5.22)
[2025-06-27 21:06] LABS: EPITHELIAL CELLS, URINE SQUAMOUS 1+ /lpf (0-1+)
[2025-06-27 21:07] LABS: BACTERIA, URINE 4+ /hpf (negative); CASTS, URINE NONE SEEN \\lpf; CRYSTALS, URINE NONE SEEN (0-1+); REFLEX CULTURE, URINE Yes (No)
[2025-06-27 21:23] LABS: ALT (SGPT) 66.0 U/L (14-59); AST (SGOT) 14.0 U/L (15-37); GLOMERULAR FILTRATION RATE,EST 60.0 mL/min (>60); PROTEIN, TOTAL 7.3 g/dL (6.4-8.2); UREA NITROGEN 13.0 mg/dL (7-18)
[2025-06-27 21:28] LABS: LACTIC ACID, BLOOD 1.6 mmol/L (0.4-2.0)
[2025-06-27] MEDS ORDERED: PIPERACILLIN/TAZOBACTAM 4.5 GM in SODIUM CHLORIDE 0.9% 100 ML IV ONE (23:30)
[2025-06-27] MEDS ORDERED: MORPHINE SULFATE 4 MG/ML VIAL IV ONE (23:30)
[2025-06-27] MEDS ORDERED: LACTATED RINGER'S 1,000 ML IV ONE (23:30)
[2025-06-28] VITALS (10 sets, daily range): BP systolic 102–118; BP diastolic 59–79
[2025-06-28] MEDS ORDERED: LACTATED RINGER'S 1,000 ML IV SCH ×2 (00:30→07:45)
[2025-06-28] MEDS ORDERED: ACETAMINOPHEN 325 MG TAB PO PRN ×2 (00:30→07:45)
[2025-06-28] MEDS ORDERED: AZITHROMYCIN 500 MG in DEXTROSE 5% 250 ML IV ONE (00:30)
[2025-06-28] MEDS ORDERED: MORPHINE SULFATE 4 MG/ML VIAL IV PRN (00:30)
[2025-06-28] MEDS ORDERED: AZITHROMYCIN 500 MG VIAL ONE (00:33)
[2025-06-28] MEDS ORDERED: ENOXAPARIN SODIUM 40 MG/0.4 ML SYR SUB-Q SCH (09:00)
[2025-06-28] MEDS ORDERED: PHARMACY RENAL DOSE ADJUSTMENT 1 DOSE MISC PO SCH (12:00)
[2025-06-28] MEDS ORDERED: IRON325 M1 PO (16:11)
[2025-06-28] MEDS ORDERED: CLARITIN10 MG PO (16:12)
[2025-06-29 01:19] VITALS: BP 120/78
[2025-06-29 01:27] VITALS: BP 120/78
[2025-06-29 05:09] VITALS: BP 109/66
[2025-06-29 05:12] VITALS: BP 109/66
[2025-06-29 05:35] LABS: BASOPHILS 0.2 % (0.1-1.2); EOSINOPHILS 0.4 % (0.7-5.8); LYMPHOCYTES 4.9 % (19.3-51.7); MCH 28.5 PG (25.6-32.2); MCHC 33.7 g/dL (32.2-35.5); MCV 84.7 fL (79.4-94.8); MONOCYTES 6.9 % (4.7-12.5); NEUTROPHILS 83.6 % (34.0-71.1); RBC 3.65 M/uL (3.93-5.22)
[2025-06-29 05:48] LABS: GLOMERULAR FILTRATION RATE,EST 76.0 mL/min (>60); UREA NITROGEN 10.0 mg/dL (7-18)
[2025-06-29 09:00] VITALS: BP 120/84
[2025-06-29 09:15] VITALS: BP 120/84
[2025-06-29] MEDS ORDERED: AMOX TR-K CLV1 EACH PO (09:16)
== END 2025-06-29 10:10 | disposition home or self-care (01) ==
LOC: ED 19:49 → MS 19:51
PROVIDERS: Internal Medicine; ADMIT Internal Medicine; ATTEND Internal Medicine
DX: N12 Tubulo-interstitial nephritis, not specified as acute or chronic (principal); J18.9 Pneumonia, unspecified organism; D72.829 Elevated white blood cell count, unspecified; E87.1 Hypo-osmolality and hyponatremia; N17.9 Acute kidney failure, unspecified; F17.210 Nicotine dependence, cigarettes, uncomplicated
CPT/HCPCS: 36415; 71045; 74177; 80048; 80053; 81001; 83605; 83690; 84703; 85025; 87040; 94762; 94799; 96361; 96365; 96366; 96367; 96372; 96375; 99285-25; A9270; G0378; J0456; J0696; J1650; J2270; J2405; J2543; J7030; J7060; J7121; Q9967

== ENCOUNTER 2025-07-15 13:41 | Inpatient (IN) | payer OTHER ==
[~2025-07-15] VITALS: Ht 152.4 cm; Wt 55.9 kg
[~2025-07-15 13:41] MED LIST: AMOX TR-K CLV1 EACH PO; CLARITIN10 MG PO; IRON325 M1 PO
--- OUTSIDE RECORDS SUMMARY | 2025-07-15 13:49 | XMS ---
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 E.D. VISIT COUNT (12 MO.) 2 HARJIT Vargas TOTAL 2 NOTE: Visits indicate total known visits. ED/UCC VISIT TRACKING (12 MO.) 07/15/2025 13:42 HARJIT Walker OR TYPE: Emergency COMPLAINT: - L SIDE ABD PAIN 06/27/2025 19:50 HARJIT Walker OR TYPE: Emergency COMPLAINT: - BACK PAIN INPATIENT VISIT TRACKING (12 MO.) 06/27/2025 19:51 HARJIT Walker OR TYPE: Observation COMPLAINT: - PYELONEPHRITIS DIAGNOSES: - Acute kidney failure, unspecified - Elevated white blood cell count, unspecified - Hypo-osmolality and hyponatremia - Nicotine dependence, cigarettes, uncomplicated - Pneumonia, unspecified organism - Tubulo-interstitial nephritis, not specified as acute or chronic [email or web address]
[2025-07-15] MEDS ORDERED: MORPHINE SULFATE 4 MG/ML VIAL IV ONE ×3 (14:30→19:15)
[2025-07-15 14:33] LABS: BASOPHILS 0.2 % (0.1-1.2); EOSINOPHILS 0.7 % (0.7-5.8); LYMPHOCYTES 8.9 % (19.3-51.7); MCH 27.2 PG (25.6-32.2); MCHC 32.5 g/dL (32.2-35.5); MCV 83.7 fL (79.4-94.8); MONOCYTES 6.9 % (4.7-12.5); NEUTROPHILS 82.9 % (34.0-71.1); RBC 2.94 M/uL (3.93-5.22)
[2025-07-15 14:49] LABS: ALT (SGPT) 35.0 U/L (14-59); AST (SGOT) 17.0 U/L (15-37); GLOMERULAR FILTRATION RATE,EST 62.0 mL/min (>60); PROTEIN, TOTAL 7.6 g/dL (6.4-8.2); UREA NITROGEN 19.0 mg/dL (7-18)
[2025-07-15] MEDS ORDERED: SODIUM CHLORIDE 0.9% 1,000 ML IV PRN (15:00)
[2025-07-15 16:58] LABS: BLOOD/HGB, URINE LARGE (Negative); KETONE, URINE NEGATIVE (Negative); LEUK ESTERASE, URINE SMALL (negative); NITRITE, URINE NEGATIVE (negative)
[2025-07-15 17:09] LABS: BACTERIA, URINE RARE /hpf (negative); CASTS, URINE NONE SEEN \\lpf; CRYSTALS, URINE NONE SEEN (0-1+); EPITHELIAL CELLS, URINE SQUAMOUS 3+ /lpf (0-1+)
[2025-07-15 17:11] LABS: REFLEX CULTURE, URINE No (No)
[2025-07-15] MEDS ORDERED: levoFLOXacin 500 MG PIGGYBACK IV SCH (18:07)
[2025-07-15] MEDS ORDERED: OXYCODONE/APAP 5/325 TAB PO PRN (18:15)
[2025-07-15] MEDS ORDERED: MAGNESIUM HYDROXIDE 30 ML UDC PO PRN (18:15)
[2025-07-15] MEDS ORDERED: SODIUM CHLORIDE 0.9% 1,000 ML IV SCH ×2 (18:15→23:30)
[2025-07-15] MEDS ORDERED: ACETAMINOPHEN 325 MG TAB PO PRN (18:15)
[2025-07-15] MEDS ORDERED: SODIUM CHLORIDE 0.9% 1,000 ML IV ONE (18:15)
[2025-07-15] MEDS ORDERED: MORPHINE SULFATE 10 MG/ML VIAL IV PRN (18:30)
[2025-07-15 18:46] LABS: RETIC, PERCENT 1.07 % (0.5-1.7)
[2025-07-15 19:25] LABS: ABO B; ANTIBODY SCREEN NEGATIVE; RH NEGATIVE
[2025-07-15 19:28] VITALS: BP 139/92
[2025-07-15 19:50] VITALS: BP 139/92
--- NOTE | 2025-07-15 20:32 | NUR ---
VERBAL REPORT RECEIVED FROM DARRIN HILL. PATIENT ARRIIVES TO [facility] FLOOR ROOM 116 VIA STRETCHER. PATIENT IS RESTING IN BED AWAKE AT THIS TIME, STATES PAIN IN RIBS WAS A 2/10 BUT THIS IS TOLERABLE FOR THEM. APPLSAUCE AND JUICE PROVIDED PER PATIENT REQUEST. CPOX AT BEDSIDE SPO2 92%, HR 124. PATIENT ORIENTED TO ROOM AND CALL LIGHT. PATIENT DENIES ANY FURTHER NEEDS AT THIS TIME.
[2025-07-15] MEDS ORDERED: MELATONIN 3 MG TAB PO PRN (21:00)
[2025-07-15 21:50] VITALS: BP 120/64
--- NOTE | 2025-07-15 22:03 | NUR ---
PATIENT NOTED TO BE TACHY VITALS OBTAINED, TEMP ELEVATED, MD NOTIFIED OF VITALS AND UA RESULTS. NEW TELEPHONE ORDERS RECEIVED VERIFIED WITH READ BACK METHOD. PATIENT RESTING IN BED. REPORTS PAIN TOLERABLE AT THIS TIME. CALL LIGHT IN REACH.
--- NOTE | 2025-07-15 23:30 | NUR ---
THIS RN RAFY BC AND PLACED 2ND IV IN R ARM.
[2025-07-15 23:32] VITALS: BP 120/69
--- NOTE | 2025-07-15 23:37 | NUR ---
PT TO ROOM 129 VIA BED WITH MS STAFF, BLOOD DRAWN BY THIS RN FROM LEFT IV SITE FOR STAT REPEAT LABS. PT CRYING IN PAIN, SEE EMAR.
[2025-07-15 23:40] VITALS: BP 121/82
[2025-07-16] VITALS (11 sets, daily range): BP systolic 97–128; BP diastolic 60–87
--- NOTE | 2025-07-16 00:02 | NUR ---
2315- NOTIFIED BY ER THAT THERE COULD HAVE BEEN A MIX UP BETWEEN PATIENT LABS. 2320- NOTIFIED MD ABOUT POSSIBLE MIX UP BETWEEN PATIENTS LABS. RECEIVED NEW ORDERS BY MD TO HAVE NEW LABS DRAWN AND TO HAVE THE PATIENT BE TRANSFERED TO CCU. 2340- PATIENT PLACED ON 2L NC DUE TO SPO2 READING 89%. HR REMAINS IN 130'S. PATIENT TRANSFERED TO CCU BY MANUEL HILL, DARRIN HILL, AND JACKY CHARGE NURSE VIA HOSPITAL BED. PERSONAL BELONGINGS TRANSFERED TO CCU. CELLPHONE WITH PATIENT. REPORT GIVEN TO ALEE HILL.
[2025-07-16 00:03] LABS: BASOPHILS 0.2 % (0.1-1.2); EOSINOPHILS 0.3 % (0.7-5.8); LYMPHOCYTES 8.7 % (19.3-51.7); MCH 27.4 PG (25.6-32.2); MCHC 32.1 g/dL (32.2-35.5); MCV 85.4 fL (79.4-94.8); MONOCYTES 6.6 % (4.7-12.5); NEUTROPHILS 83.3 % (34.0-71.1); RBC 2.81 M/uL (3.93-5.22)
[2025-07-16 00:16] LABS: ALT (SGPT) 26.0 U/L (14-59); AST (SGOT) 13.0 U/L (15-37); GLOMERULAR FILTRATION RATE,EST 74.0 mL/min (>60); PROTEIN, TOTAL 6.6 g/dL (6.4-8.2); UREA NITROGEN 11.0 mg/dL (7-18)
--- NOTE | 2025-07-16 00:30 | NUR ---
HERE AT BEDSIDE, REVIEW NEW LAB DRAW - V/O START #3 BOLUS FOR NA 130. NEW IV PLACED TO R FA BY THIS RN. DR TO PLACE NEW ORDERS. PT WAS UP TO BSC TO VOID 500 ML URINE, TAKING WATER BY MOUTH. TEMP 100 ORALLY PRIOR TO DRINK. TYLENOL ONBOARD. PT AND SUPERVISOR COOPERAGE SHOP PLAN OF CARE AND PT RESTING WITH PAIN IMPROVED. CALL LIGHT IN REACH AND PT HAS EYES CLOSED.
[2025-07-16] MEDS ORDERED: MEROPENEM 1,000 MG in DEXTROSE 5% 100 ML IV SCH (00:34)
[2025-07-16] MEDS ORDERED: LORazepam 2 MG/ML VIAL IV PRN (00:45)
[2025-07-16] MEDS ORDERED: HYDROCORTISONE SOD SUCCINATE 100 MG/2 ML VIAL IV SCH (00:45)
[2025-07-16] MEDS ORDERED: DAPTOmycin 500 MG/10 ML VIAL IV ONE (00:45)
--- NOTE | 2025-07-16 01:44 | NUR ---
PT HR 124, RR 23 EYES CLOSED, RESTING AFTER ATIVAN - 2LNC OXYGEN PLACED. PT DENIES NEEDS, CALL LIGHT IN REACH.
[2025-07-16 05:19] LABS: BASOPHILS 0.1 % (0.1-1.2); EOSINOPHILS 0 % (0.7-5.8); LYMPHOCYTES 3.6 % (19.3-51.7); MCH 26.9 PG (25.6-32.2); MCHC 31.3 g/dL (32.2-35.5); MCV 85.7 fL (79.4-94.8); MONOCYTES 3.5 % (4.7-12.5); NEUTROPHILS 91.9 % (34.0-71.1); RBC 2.94 M/uL (3.93-5.22)
[2025-07-16 05:31] LABS: GLOMERULAR FILTRATION RATE,EST 68.0 mL/min (>60); UREA NITROGEN 10.0 mg/dL (7-18)
--- NOTE | 2025-07-16 07:23 | NUR ---
call to dr de dios to update on pt status mg 1.7, wbc increase and improved vitals, and temp now 98. pt reports this am feeling much better. report to day shift.
--- NOTE | 2025-07-16 08:00 | NUR ---
REPORT RECIEVED FROM LIZ Lopez PT RESTING WITH EYES CLOSED IN BED. S.O. IN CHAIR NEXT TO BED WITH EYES CLOSED. VS STABLE. CALL LIGHT IN REACH.
[2025-07-16] MEDS ORDERED: LORATADINE 10 MG TAB PO SCH (09:00)
[2025-07-16] MEDS ORDERED: MAGNESIUM OXIDE 400 MG TABLET PO SCH (09:00)
[2025-07-16] MEDS ORDERED: DAPTOmycin 500 MG/10 ML VIAL IV SCH (09:00)
[2025-07-16] MEDS ORDERED: FAMOTIDINE 20 MG TAB PO SCH (09:00)
--- NOTE | 2025-07-16 09:17 | NUR ---
PT AWAKE AND ATE MOST OF BREAKFAST. RATES PAIN 5\10 ALTHOUGH WAS MORE PAINFUL WITH MOVEMENT OF ASSESSMENT. WENT BACK TO SLEEP QUICKLY. REFILLED ICE WATER. AFEBRILE AT 97.5. CALL LIGHT IN REACH. DENIES NEEDS ATT.
--- NOTE | 2025-07-16 10:08 | NUR ---
PT REMAINS RESTING IN BED WITH CALL LIGHT INREACH.
--- NOTE | 2025-07-16 10:11 | NUR ---
UR CLINICAL REVIEW: MCG-PER MCG REVIEW MEETS INPT FOR UTI WITH NEED FOR IVF,IV ABX AND SERIAL MONITORING [facility] INPT 07/15/25 @ 1808 ORDER MATCHES REG CLINICALS FAXED TO [facility] FOR AUTH REVIEW DISCHARGE TO HOME WHEN STABLE 07/17/25 DC REVIEW
--- NOTE | 2025-07-16 10:17 | NUR ---
SPOKE WITH DR REGARDING EARLIER STATEMENT OF POSSIBLY CONVERTING IV FLAGYL TO PO. STATED WE WOULD STAY WITH THE IV FOR NOW, HUNG BAG.
--- NOTE | 2025-07-16 11:11 | NUR ---
HUNG NEW BAG OF IVF, PT WOKE WITH BEEPING OF PUMP. STATES SHE FEELS GENERALLY SICK. AFEBRILE. VS STABLE. DENIES NEEDING PAIN MEDS WHILE STILL.
[2025-07-16] MEDS ORDERED: PHARMACY RENAL DOSE ADJUSTMENT 1 DOSE MISC PO SCH (12:00)
--- NOTE | 2025-07-16 12:26 | NUR ---
PT UP TO CHAIR, MOVEMENT WAS PAINFUL. RATES 5\10. ASKED FOR PAIN MEDS, ADMINISTERED PRN. PT HAS LUNCH AND CRANBERRY JUICE. CALL LIGHT IN REACH.
--- NOTE | 2025-07-16 12:45 | NUR ---
Spoke jamarcus Medina. She states she is very tired and has not been feeling well. She, her 14 mo old, and SO have been staying with his older friends in [place]. They recently moved from her sister's home in [place]. She states they are couch surfing, the people really don't want them where they are now, but are allowing them to stay. She is very tearful and has had the of her mom and best friend recently. She states she is very depressed and has not been eating. She has lost 15-20 pounds. She states she has been using meth as this gives her energy to get out of bed. This also causes issues between her and her boyfriend. She needs a pcp and I will send her chart to [facility], she would like to reestablish with [facility] for counseling and also is willing to work with [facility] A&D program. She has worked with [facility] in the past, but would prefer not to use them again, she would like to discharge to the [facility] if they have beds open. I will contact Ysabel from mother/child wellness, [facility], [facility] to see if anyone can assist with house. She assures me her child has food and is well kept. I let her know I believe her and I will check for resources for her. Will fu tomorrow.
[2025-07-16] MEDS ORDERED: TYLENOL325 MG PO (13:25)
--- NOTE | 2025-07-16 13:25 | NUR ---
MED REC COMPLETE
--- NOTE | 2025-07-16 13:42 | NUR ---
PT BACK TO CHAIR FROM [facility], STEADY ON FEET. TABLE AND CALL LIGHT IN REACH, PT DENIES FURTHER NEEDS AT THIS TIME.
--- NOTE | 2025-07-16 14:11 | NUR ---
PT SITTING UP IN CHAIR TALKING WITH SO. STATES THE PAIN MED HELPED A LOT. ATE SOME FRIED CHICKEN HER SO BROUGHT IN .
--- NOTE | 2025-07-16 14:23 | NUR ---
PT GOT SELF BACK TO BED AND WAS NOTED TO HAVE ELEVATED RR. PT WAS PAINFUL FROM MOVEMENT AND ASKED FOR A HOT PACK, ONE WAS PROVIDED WRAPPED IN TOWEL. ADVISED IF IT GETS TOO WARM TAKE IT OFF. WARM BLANKETS PROVIDED ALSO.
--- NOTE | 2025-07-16 15:20 | NUR ---
HUNG SCHEDULED AB. SO IN BED WITH PT. BOTH RESTING WITH EYES CLOSED.
--- NOTE | 2025-07-16 16:42 | NUR ---
PT S\O LEFT. PT CALLED FOR PAIN MEDICATION RATES 5\10. WATCHING TV IN BED. STATES SHE HAD A GOOD NAP.
--- NOTE | 2025-07-16 17:10 | NUR ---
RAFY BLOOD FOR LAB. FLUSHED WELL AFTER. PT HAD HICCUPS AND WAS QUITE PAINFUL.
[2025-07-16 17:12] LABS: BASOPHILS 0.1 % (0.1-1.2); EOSINOPHILS 0.1 % (0.7-5.8); LYMPHOCYTES 7.0 % (19.3-51.7); MCH 27.6 PG (25.6-32.2); MCHC 32.1 g/dL (32.2-35.5); MCV 86.0 fL (79.4-94.8); MONOCYTES 5.2 % (4.7-12.5); NEUTROPHILS 86.7 % (34.0-71.1); RBC 2.72 M/uL (3.93-5.22)
--- NOTE | 2025-07-16 17:31 | NUR ---
Chart faxed to [facility] to request PCP. Message left for Lyndon Bueno at [facility]. I will contact other resources tomorrow as it is after 5.
--- NOTE | 2025-07-16 17:36 | NUR ---
Message left for Ysabel Healy at [facility].
--- NOTE | 2025-07-16 17:42 | NUR ---
PT WAS NOTED TO HAVE A POSSIBLE CHANGE ON TELE MONITOR. LIZ TORRES CALLED DR GAVIN AND ORDERED AN EKG. PT NOT HAVING CHEST PAIN, JUST THE LEFT RIB PAIN SHE HAS HAD SINCE COMING IN. ATE A SMALL AMT OF DINNER. S\O BROUGHT HER IN A SNACK.
[2025-07-16] MEDS ORDERED: ARTIFICIAL TEARS 15 ML BTL OU PRN (18:45)
--- NOTE | 2025-07-16 18:52 | NUR ---
PT'S S\O CAME OUT TO SAY THAT THE PT'S LEFT EYE WAS HURTING AND BLURRY. EYE IS SLIGHTLY RED, NOT ITCHY, NO DISCHARGE. ORDERED SALINE EYE DROPS. NOTIFIED DR GAVIN.
--- NOTE | 2025-07-16 19:24 | EKG ---
[facility] [address] [place] [address] Signed Normal sinus rhythm Cannot rule out Anterior infarct (cited on or before 08-FEB-2024) Abnormal ECG When compared with ECG of 08-FEB-2024 18:58, No significant change was found Confirmed by Eric Gavin MD () on 07/16/2025 7:24:07 PM Electronically Signed By: ERIC GAVIN MD 07/16/25 192 PATIENT NAME: EDUAR NGUYEN Electrocardiogram DATE OF : [birth year] PHYSICIAN: ERIC GAVIN MD REPORT #: [id number] REPORT IS CONFIDENTIAL AND NOT TO BE RELEASED WITHOUT AUTHORIZATION
--- NOTE | 2025-07-16 19:30 | NUR ---
REPORT RECEIVED FROM ALEE HILL. PT WAS TALKING WITH S/O WHO HAS JUST LEFT.
--- NOTE | 2025-07-16 19:50 | NUR ---
IN TO CHECK ON PT, SHE IS RESTING WITH EYES CLOSED, RESP EVEN AND UNLABORED, SPO2 96%, HR 100'S.
--- NOTE | 2025-07-16 21:35 | NUR ---
IN TO HANG IV ANTIBIOTICS, PT AWAKENS TO VOICE. SHE THEN CALLS HER S/O TO CHECK ON HER CHILD AND BECOMES UPSET DURING THIS CONVERSATION WITH HIM, STATES, "I MIGHT HAVE TO LEAVE EARLY, I MIGHT HAVE TO GO GET MY KID." PT IS NOW CALLING BACK HER S/O TO DISCUSS SITUATION WITH HER CHILD WHO IS 14 MONTHS OLD.
--- NOTE | 2025-07-16 22:30 | NUR ---
PT PAINFUL IN BED, PERCOCET GIVEN PER EMAR WITH WARM PACK FOR FLANK PAIN.
--- NOTE | 2025-07-16 23:30 | NUR ---
PT CRYING AND UPSET, TALKING ON THE PHONE TO HER S/O, THEN HER FRIEND. IN TO ASK HER IF HER SON IS SAFE AND SHE STATES "YES, HE IS," SHE DENIES NEED FOR ANY HELP AND STATES HER FRIEND IS GOING TO COMMERCIAL CENTER MANAGER HER SON.
[2025-07-17] VITALS (17 sets, daily range): BP systolic 114–150; BP diastolic 73–125
--- NOTE | 2025-07-17 00:15 | NUR ---
PT CALLS FOR ASSISTANCE UP TO BATHROOM, SHE IS CRYING AND UPSET. SHE IS ABLE TO VOID, MISSED HAT, BACK TO BED. HR UP TO 115 WHILE UP, BACK DOWN TO 108 WHEN IN BED. DENIES NEEDS AT THIS TIME.
--- NOTE | 2025-07-17 00:33 | NUR ---
MELATONIN GIVEN PER REQUEST.
--- NOTE | 2025-07-17 01:00 | NUR ---
S/O HAS ARRIVED TO STAY THE NIGHT WITH PTS SON. PT AND S/O ARE AWARE THAT HE MAY NOT LEAVE THE CHILD IN THE HOSPITAL.
--- NOTE | 2025-07-17 03:00 | NUR ---
PT HAS BEEN RESTFUL OVER THE LAST TWO HOURS, REMAINS ON CONTINUOUS CARDIAC MONITORING, HR SLIGHTLY TACHYCARDIC 100-115, RR 20-30 WITH SPO2 98% ON ROOM AIR.
--- NOTE | 2025-07-17 04:52 | NUR ---
PT UP TO VOID, BACK TO BED. PERCOCET GIVEN PER EMAR FOR 7/10 FLANK/ABDOMINAL PAIN. NEW WARM PACK GIVEN WELL, NO FURTHER NEEDS.
[2025-07-17 05:57] LABS: BASOPHILS 0.2 % (0.1-1.2); EOSINOPHILS 0.9 % (0.7-5.8); LYMPHOCYTES 12.6 % (19.3-51.7); MCH 27.2 PG (25.6-32.2); MCHC 31.8 g/dL (32.2-35.5); MCV 85.6 fL (79.4-94.8); MONOCYTES 5.9 % (4.7-12.5); NEUTROPHILS 79.5 % (34.0-71.1); RBC 2.50 M/uL (3.93-5.22)
[2025-07-17 06:15] LABS: ALT (SGPT) 16.0 U/L (14-59); AST (SGOT) 7.0 U/L (15-37); GLOMERULAR FILTRATION RATE,EST 88.0 mL/min (>60); PHOSPHORUS, INORGANIC 2.6 mg/dL (2.5-4.9); PROTEIN, TOTAL 5.4 g/dL (6.4-8.2); SMEAR REVIEW BLOOD SEE COMMENTS; UREA NITROGEN 11.0 mg/dL (7-18)
--- NOTE | 2025-07-17 08:00 | NUR ---
Received a call from Gladys Gamez from [facility] for women and children. UPdate given, she will call Carol.
--- NOTE | 2025-07-17 08:00 | NUR ---
assisted pt to amb to br for void, and bed bath, linen change new gown, new bed linen, pt denies needs - c/o left side pain tollerable, family in room - pt brushed teeth. eating well. iv fusing both iv wnl.call light in reach.
[2025-07-17] MEDS ORDERED: MAGNESIUM SULFATE 2 GM/50 ML BAG IV ONE (08:15)
[2025-07-17] MEDS ORDERED: DEXTROSE 5% 1,000 ML IV SCH (08:15)
--- NOTE | 2025-07-17 09:02 | NUR ---
DR. GAVIN IN TO SEE PATIENT AND DISCUSSING PLAN OF CARE. PATIENT AGREEABLE TO A BLOOD TRANSFUSION.
[2025-07-17 09:11] LABS: N. GONORRRHOEAE BY PCR NOT DETECTED (NOT DETECT)
--- NOTE | 2025-07-17 09:15 | NUR ---
PUMP BEEPING, MAGNESIUM INFUSION COMPLETE. PT IS AWAKE IN BED, DENIES NEEDS AT THIS TIME. FAMILY AT BEDSIDE. CALL LIGHT IN REACH.
[2025-07-17 09:28] LABS: IS CROSSMATCH COMPATIBLE
--- NOTE | 2025-07-17 09:31 | NUR ---
[facility] IN [facility] CALLED THIS AM TO GET INFORMATION FOR PATIENT. UPDATED PATIENT THEY WILL BE CALLING HER SOMETIME IN A DAY OR TWO TO DISCUSS POTENTIAL HOUSING ASSISTANCE. UPDATED HER THAT SHE WILL BE SEEING IDRIS BLAKE PA-C, FOR FOLLOW-UP AND PCP. DENIES OTHER NEEDS AT THIS TIME. STATES HOUSING IS HER BIGGEST ISSUE.
--- NOTE | 2025-07-17 09:48 | NUR ---
IN ROOM FOR CONFIRM ID, BLOOD BAND CHECKED, VERIFY CONSENT AND COPY OF BAND/CONSENT TO LAB TO OBTAIN BLOOD ORDERED. PT AGREES. CALL LIGHT IN REACH, DENIES NEEDS.
--- NOTE | 2025-07-17 09:50 | NUR ---
2 rn in to confirm and verify blood consent and blood bad. vss, scds on pt.
--- NOTE | 2025-07-17 09:53 | NUR ---
DISCHARGE REVIEW: BARRIER TO DC NOTED. PATIENT HOMELESS WITH YOUNG CHILD. PATIENT CONECTED WITH [facility] TO ASSIST WITH HOUSING AND OTHER RESOURCES CURRENT DISCHARGE PLANNING PENDING FURTHER EVALUATION OF RESOURCES ADD: TBD NO ACTIONS REQUIRED.
--- NOTE | 2025-07-17 10:06 | NUR ---
HOSPITAL FOLLOW-UP SCHEDULED BY Flo JUAREZ RN, AT [facility] FOR 08/07/25 AT 1300. FOLLOW-UP APPOINTMENT DOCUMENTED IN DISCHARGE INSTRUCTIONS.
--- NOTE | 2025-07-17 10:13 | NUR ---
rn in room with pt for full 15 min during start of blood transfusion. no signs or symptoms of reaction noted. blood running 85 ml/hr at 15 ml volume. increased after 15 min manny. vss - pt given po meds for pain as previously noted see emar. resting in bed with call light.
--- NOTE | 2025-07-17 11:19 | NUR ---
pt resting in bed, eyes closed hr 104. iv sites x2 wnl. rn assisted lab to draw blood - pt amb to br to void 1000 ml urine.
[2025-07-17 11:56] LABS: GLOMERULAR FILTRATION RATE,EST 93.0 mL/min (>60); UREA NITROGEN 9.0 mg/dL (7-18)
--- NOTE | 2025-07-17 12:27 | NUR ---
call to dr hirsch to confirm iv fluids continue and new labs at 4 pm today. blood complete - no signs/sx of reaction. pt eating lunch and talking on phone. rn gave pt jayy MURRELL mental health and homeless resources, pt wants to stay in area - needs help with housing and interested in out pt rehab, rn brainstorming to help with ideas of services to help with mental health, rehab and child welfare assistant. pt thankful. call light in reach.
--- NOTE | 2025-07-17 14:06 | NUR ---
APPOINTMENT SCHEDULED FOR [facility] [employer] [employer] ON 07/24/25 @ 9:30 AM, APPOINTMENT IN DC INSTRUCTIONS
--- NOTE | 2025-07-17 14:19 | NUR ---
pt amb to bathroom void 800 ml and small hard stool noted. specimen sent to lab, and bedside hemmocult test done and negative. pt encouraged to drink water and will monitor constipation and give prn as needed. pt family in room and pt talkative. juice (ensure nourashiment) given pt likes the clear liquid version. call to kitchen for dietary consult - provider out of town until tuesday. rn will give printed education on dietary improvement.
[2025-07-17] MEDS ORDERED: MEROPENEM 1,000 MG in DEXTROSE 5% 100 ML IV SCH (15:00)
--- NOTE | 2025-07-17 15:30 | NUR ---
rn in for abx iv, pt anxious- baby just left, iv ativan given to help, warm blanket for comfort. family in room at side and call light in reach.
[2025-07-17 16:14] LABS: BASOPHILS 0.1 % (0.1-1.2); EOSINOPHILS 0.9 % (0.7-5.8); LYMPHOCYTES 10.5 % (19.3-51.7); MCH 27.6 PG (25.6-32.2); MCHC 31.9 g/dL (32.2-35.5); MCV 86.7 fL (79.4-94.8); MONOCYTES 4.5 % (4.7-12.5); NEUTROPHILS 83.3 % (34.0-71.1); RBC 3.15 M/uL (3.93-5.22)
[2025-07-17 16:24] LABS: GLOMERULAR FILTRATION RATE,EST 93.0 mL/min (>60); UREA NITROGEN 9.0 mg/dL (7-18)
[2025-07-17] MEDS ORDERED: POTASSIUM CHLORIDE 10 MEQ TABCR PO ONE (16:30)
--- NOTE | 2025-07-17 16:30 | NUR ---
call to dr hirsch to update on labs - he will review more and order. pt is resting in bed with call light hr 108 and resp 30. 97% oxygen on room air. rn ordered pt room service dinner for tonight.
[2025-07-17] MEDS ORDERED: SODIUM CHLORIDE 0.9% 1,000 ML IV SCH ×2 (16:45→20:45)
--- NOTE | 2025-07-17 18:47 | NUR ---
PT RESTING IN BED ON LEFT SIDE, RESP EVEN, IV FUSING WELL CALL LIGHT IN REACH.
[2025-07-17 19:34] LABS: IRON BINDING CAPACITY TOTAL 214 ug/dL (240-450); IRON,SERUM OR PLASMA 7 ug/dL (28-170); TRANSFERRIN SATURATION 3 %sat (20-50)
--- NOTE | 2025-07-17 19:45 | NUR ---
pt amb to br to void, pt pain increased, hr up and resp up, see vitals, po percocet given for pain/fever 101. oral temp.call light in reach and report to hourly shift.
--- NOTE | 2025-07-17 19:51 | NUR ---
this rn call to dr to update, new order to sl iv, he will be down to see pt, aware of po med for pain/fever. bp improved 136/93 (map 106). call light in reach - linen changed on bed.
--- NOTE | 2025-07-17 20:00 | NUR ---
REPORT RECEIVED FROM DAY SHIFT NURSE. PATIENT BACK TO BED AFTER USING RESTROOM. UPON ASSESSMENT PATIENT COMPLAINED OF L. RIB PAIN WHEN INHALING DEEPLY OR MOVING MUCH. ABDOMEN DISTENDED AND FIRM. PATIENT REPORTS FEELING BLOATED. PATIENT OFFERED TYLENOL PER MAR FOR FEVER AND PAIN. DR. GAVIN ROUNDING WITH PATIENT UPDATING PATIENT ON PLAN OF CARE, ANTIBIOTICS AND ORDERING A LIDOCAINE PATCH. PATIENT GIVEN JUICE PER REQUEST. CALL LIGHT AND PERSONAL BELONGINGS ARE WITHIN REACH.
[2025-07-17 20:31] LABS: GLOMERULAR FILTRATION RATE,EST 92.0 mL/min (>60); UREA NITROGEN 10.0 mg/dL (7-18)
[2025-07-17] MEDS ORDERED: LIDOCAINE HCL 4% 1 EACH PATCH TD SCH (21:00)
--- NOTE | 2025-07-17 21:30 | NUR ---
LIDOCAINE PATCH PLACED ON LEFT SIDE AND TYLENOL GIVEN PER OCT. PATIENT REPORTS DECREASED PAIN. APPLESAUCE PROVIDED PER PATIENT REQUEST. PATIENT REPORTED BEING HOT, COLD WASHCLOTH PLACED ON FOREHEAD. PATIENT DENIES FURTHER NEEDS AT THIS TIME. PATIENT'S LOVED ONE LAYING IN THE RECLINER AT THE BEDSIDE.
[2025-07-18] VITALS (10 sets, daily range): BP systolic 110–142; BP diastolic 60–99
--- NOTE | 2025-07-18 02:09 | NUR ---
patient uses call light requesting to use bathroom. patient ambulates to bathroom, steady on feet. patient voids, then back to bed. patient provided with more ice water, no further needs at this time. call light in reach.
--- NOTE | 2025-07-18 06:23 | NUR ---
UPDATED PATIENT ON INABILITY TO GET BLOOD TO DRAW BACK FROM IVS FOR MORNING LABS. LAB CALLED, PATIENT STATED, "THIS IS THE TYPE OF SHIT THAT MAKES ME WANT TO LEAVE AMA". PATIENT OFFERED ATIVAN FOR ANXIETY, PT ACCEPTED. LAB IN THE ROOM AT THIS TIME, THIS RN TALKING PATIENT THROUGH BLOOD DRAW. PATIENT TOLERATED OKAY. PATIENT DENIES FURTHER NEEDS AT THIS TIME. CALL LIGHT AND PERSONAL BELONGINGS ARE WITHIN REACH.
[2025-07-18 06:30] LABS: BASOPHILS 0.2 % (0.1-1.2); EOSINOPHILS 0.8 % (0.7-5.8); LYMPHOCYTES 9.3 % (19.3-51.7); MCH 27.5 PG (25.6-32.2); MCHC 32.8 g/dL (32.2-35.5); MCV 83.8 fL (79.4-94.8); MONOCYTES 6.7 % (4.7-12.5); NEUTROPHILS 82.3 % (34.0-71.1); RBC 3.02 M/uL (3.93-5.22)
[2025-07-18 06:47] LABS: AST (SGOT) 8 U/L (15-37); GLOMERULAR FILTRATION RATE,EST 88 mL/min (>60); PROTEIN, TOTAL 5.9 g/dL (6.4-8.2); UREA NITROGEN 7 mg/dL (7-18)
[2025-07-18 06:48] LABS: ALT (SGPT) <6 U/L (14-59)
--- NOTE | 2025-07-18 07:35 | NUR ---
report from winch truck operator Davida received. pt resting in bed hr 98-100, call light in reach, white board updated.
[2025-07-18] MEDS ORDERED: MAGNESIUM SULFATE 2 GM/50 ML BAG IV ONE (07:45)
--- NOTE | 2025-07-18 07:51 | NUR ---
RECIEVED SHIFT REPORT. PT IS RESTING IN BED, EYES CLOSED, BREATHING EVEN AND UNLABORED. BREAKFAST BROUGHT INTO ROOM. VISITOR AT BEDSIDE. CALL LIGHT IN REACH.
--- NOTE | 2025-07-18 08:21 | NUR ---
SCHEDULED MEDICATIONS GIVEN PER EMAR ORERS, IVF INFUSING WITHOUT DIFFICULTY. ASSESSMENT COMPLETED. PATIENT RESTING IN BED WITH EYES CLOSED, EASILY AROUSED WITH VERBAL COMMANDS, RESPONDS APPROPRIATLY, NO SIGNS OF DISTRESS. S/O AT BEDSIDE. NO NEEDS IDENTIFED AT THIS TIME. CALL LIGHT AND BELONGINGS WITHIN REACH.
[2025-07-18] MEDS ORDERED: POLYETHYLENE GLYCOL 3350 1 PACKET PO SCH (09:00)
[2025-07-18] MEDS ORDERED: SENNOSIDES/DOCUSATE 1 EA TAB PO SCH (09:00)
[2025-07-18] MEDS ORDERED: LIDOCAINE PATCH REMOVAL 1 EA TD SCH (09:00)
--- NOTE | 2025-07-18 09:15 | NUR ---
IN ROOM WITH DR AT PT BEDSIDE, PT SLEEPY, HR TACHY - PT REPORTS PAIN CONTINUES TO LEFT SIDE. PLAN TO CONTINUE ABX AND PAIN CONTROL, MONITOR WITHDRAWL SYMPTOMS. CALL LIGHT IN REACH - PT IN BED WITH S/O AT SIDE.
[2025-07-18] MEDS ORDERED: FERROUS SULFATE 325 MG TAB PO SCH (10:30)
--- NOTE | 2025-07-18 10:48 | NUR ---
I&O'S DOCUMENTED, PATIENT RESTING IN BED, AROUSABLE. CALL LIGHT IN REACH.
--- NOTE | 2025-07-18 11:10 | NUR ---
VISITORS IN ROOM. CASE MANAGEMENT AT BEDSIDE. CALL LIGHT IN REACH.
--- NOTE | 2025-07-18 11:30 | NUR ---
INTO SEE PATIENT. SPOKE WITH HER ABOUT RESOURCES. PATIENT STATES SHE DOES NOT HAVE A PROBLEM WITH [facility] JUST [facility]. GAVE HER INFORMATION ABOUT [facility] IF SHE WAS NOT HAPPY WITH HER [facility]CS APT. PATIENT HAS FRIENDS AT BEDSIDE. NO FUTHER CM NEEDS.
--- NOTE | 2025-07-18 11:39 | NUR ---
ANSWERED PATIENT CALL LIGHT FOR ASSISTANCE TO RESTROOM. PATIENT PERFORMED OWN PERICARE. STEADY GAIT, STBY FOR LINES. FAMILY IN ROOM. NO OTHER NEEDS IDENDTIFED AT THIS TIME. CALL LIGHT IN REACH.
[2025-07-18 11:49] LABS: HEPATITIS A ANTIBODY, IGM Negative (Negative); HEPATITIS C AB CIA INTERP Negative (Negative); HEPATITIS C ANTIBODY CIA INDEX 0.02 IV (())
--- NOTE | 2025-07-18 12:00 | NUR ---
ASSESSMENT COMPLETED. PATIENT LUNCH TRAY SET UP AT BEDSIDE. PATIENT LAYING IN BED, EASILY AROUSABLE AND ABLE TO ANSWER QUESTIONS. NOW RESTING WITH EYES CLOSED, RESPIRATIONS EVEN AND UNLABORED. NO OTHER NEEDS IDENTIFED AT THIS TIME. NEW BAG OF IVF HUNG AND INFUSING WITHOUT DIFFICULTY. CALL LIGHT IN REACH.
--- NOTE | 2025-07-18 12:31 | NUR ---
in room to check on pt. pt is resting in bed, eyes closed, arousable. pt states she hurts, pain medication was offered and pt denies pain medication and states "i just want to sleep". call light in reach.
--- NOTE | 2025-07-18 13:18 | NUR ---
pt up to the bathroom, pt back in bed, pt states she wants a shower or she is going to leave. discussed with pt we can do a bedbath at this time. pt refused. out in nurses station asking who needs to talk to get pt into a shower or she will discharge. jana mcmullen discussed with that will discuss when other unit nurses return.
--- NOTE | 2025-07-18 13:23 | NUR ---
PT LEAVES PT ROOM, HE IS LEAVING WITH BAGS, HE STATES SHE WANTS TO BE DISCHARGED. [facility] NOTIFIED [facility] AND HE WILL BE DOWN TO TALK TO PT.
--- NOTE | 2025-07-18 13:27 | NUR ---
1300 PT BOYFRIEND CAME OUT OF ROOM STATING PT IS WANTING PAIN MEDICATION. LOOKED UP PT MEDICATION. 1308 PT PROVIDED WITH PAIN MEDICATION SHOWN ON EMAR. AFTER GIVEN, PT STATED SHE NEEDED TO USE BATHROOM. PT SBA TO BATHROOM AND BACK TO BED. DURING THIS TIME, PT STARTED TO SAY SHE WAS GOING TO LEAVE TOMORROW IF SHE DIDNT GET A SHOWER. PT STATED SHE HASNT HAD A SHOWER IN FOUR DAYS AND IT WAS UNACCEPTABLE AND SHE WASNT GOING TO STAY IF SHE DIDNT SHOWER. PT OFFERED BATH WIPES AND WRAGS. PT REFUSED. 1320 PT BOYFRIENEvens CAME OUT OF ROOM STATING PT IS REALLY WANTING TO SHOWER. BOYFRIEND INFORMED THAT WE DO NOT HAVE STAFF AT THIS TIME TO TAKE HER TO THE SHOWER ONE IS IN THE IMAGING DEPARTMENT WITH ANOTHER PATIENT AND ONE IS AT LUNCH. PT WENT BACK INTO ROOM. 1322 PT BOYFRIEND CAME BACK OUT OF ROOM WITH BAGS AND STATED PT IS WANTING TO BE DISCHARGED AND DOES NOT WANT TO STAY. 1322 THIS RN IN ROOM TO TALK WITH PT. PT INFORMED THAT IT IS NOT THAT SHE CANNOT HAVE A SHOWER TODAY BUT THAT SHE CANNOT HAVE ONE AT THIS TIME STAFF IS NOT AVAILABLE. PT STATED THAT "IT ISNT JUST THAT". PT STATED HER BOYFRIEND DID NOT THINK THE HOSPITAL STAFF KNEW WHAT THEY WERE DOING WITH HER CARE AND THAT PT DID NOT FEEL IF SHE IS GETTING ANY BETTER. INFORMED PT I WOULD LET THE DR KNOW HOW SHE WAS FEELING. 1323 HOSPITALIST CALLED AND INFORMED OF SITUATION.
--- NOTE | 2025-07-18 13:49 | NUR ---
IN ROOM WITH DR GAVIN TO DISCUSS PT'S EXPRESSED DESIRE TO LEAVE TO [facility]. PT TEARFUL IN BED STATING SHE IS FRUSTRATED BECAUSE SHE DOES NOT FEEL LIKE SHE IS GETTING ANY BETTER, SHE WANTS A SHOWER, AND SHE WANTS HER PRIMARY NURSE BACK. MD REASSURED THE PT THAT HER LABS WERE TRENDING IN THE APPROPRIATE DIRECTION, SHE COULD ABSOLUTELY TAKE A SHOWER SOON STAFF IS AVAILABLE. TRANSFER ORDERS COMPLETED BY MD, AND PT AGREEABLE TO MOVING TO [place] AND TAKING A SHOWER. PT REPORTED INCREASED ANXIETY AND PRN ATIVAN WAS GIVEN. PT RESTING IN BED NOW, FLUIDS INFUSING, NO OTHER REQUESTS/CONCERNS AT THIS TIME.
--- NOTE | 2025-07-18 14:15 | NUR ---
report from insurance licensing supervisor sanam, pt resting in bed, hr 108, resp 21, plan to trsf to 115 room and pt can shower, see emar for recent ativan and pain meds.
--- NOTE | 2025-07-18 14:51 | NUR ---
IN ROOM FOR IV ABX. HR 105 AND RESP 23 WITH EYES CLOSED RESTING IN BED. CALLLIGHT IN HAND.
[2025-07-18 14:55] LABS: HIV 1,2 COMBO ANTIGEN/ANTIBODY Negative (Negative)
--- NOTE | 2025-07-18 16:30 | NUR ---
PT ASLEEP IN ROOM. PT AWAKES EASY. PT WALKED TO BATHROOM TO VOID. PT WISHES TO TAKE A SHOWER DUE TO HAVING DIARRHEA AND PT HAD A LOSS OF BOWEL CONTROL. PT STILL TACHY AND TACHEAPNIC. NO NEW CONCERNS NOTED AT THIS TIME. ABD PAIN 410. PT HAS NO OTHER CONCERNS AT THIS TIME.
--- NOTE | 2025-07-18 22:18 | NUR ---
ANSWERED CALL LIGHT PATIENT UP TO BATHROOM. GAIT STEADY, RESPIRATIONS SHALLOW AND FAST. PATIENT HAS WORSENING PAIN WITH MOVEMENT. LIDOCAINE PATCH IN PLACE, HOT PACK GIVEN AND WARM BLANKET PROVIDED. SCDS IN PLACE. IV FLUIDS AND ANTIBIOTICS ARE INFUSING WNL. PARTNER IN ROOM AT BEDSIDE. ONE MISSED VOID AND SOFT, SMALL, BROWN BM. PATIENT DENIES FURTHER NEEDS AT THIS TIME.
--- NOTE | 2025-07-18 22:46 | NUR ---
call light answered, pt requesting warm blanket. warm blanket provided then pt states, "i just feel so cold". oral temp of 100.3. blanket removed and pt educated on rationale, prn tylenol gven-see emar. primary rn luis angel at rn station and made aware. call light in reach. no additional needs or concens verbalized.
[2025-07-19] VITALS: BP 143/95
--- NOTE | 2025-07-19 00:08 | NUR ---
ANSWERED CALL LIGHT PATIENT REPORTED BEING TOO HOT. BLANKETS REMOVED AND WASH CLOTH ON FOREHEAD. PATIENT REFUSED ICE PACK. TEMP WAS 101.5 TYLENOL GIVEN RECENTLY. PATIENT DENIES FURTHER NEEDS AT THIS TIME.
[2025-07-19 02:11] LABS: CREATININE, URINE - PER VOLUME 97 mg/dL (()); HOURS COLLECTED Not Provided hr (())
[2025-07-19 04:00] VITALS: BP 133/101
[2025-07-19 05:52] LABS: ALT (SGPT) 9.0 U/L (14-59); AST (SGOT) 10.0 U/L (15-37); BASOPHILS 0.2 % (0.1-1.2); EOSINOPHILS 0.8 % (0.7-5.8); GLOMERULAR FILTRATION RATE,EST 92.0 mL/min (>60); LYMPHOCYTES 10.4 % (19.3-51.7); MCH 27.4 PG (25.6-32.2); MCHC 33.1 g/dL (32.2-35.5); MCV 82.8 fL (79.4-94.8); MONOCYTES 9.2 % (4.7-12.5); NEUTROPHILS 78.7 % (34.0-71.1); PROTEIN, TOTAL 5.6 g/dL (6.4-8.2); RBC 2.85 M/uL (3.93-5.22); UREA NITROGEN 6.0 mg/dL (7-18)
[2025-07-19 08:00] VITALS: BP 136/97
--- NOTE | 2025-07-19 09:21 | NUR ---
dr in room, pt amb to br and up in chair eating well.
--- NOTE | 2025-07-19 09:36 | NUR ---
iv x2 sl wnl - pt amb in room, oral temp 98. pt alert and oriented, talkative and feeling better per report. call light in reach - am care done, bed linen changed and coffee to pt and s/o.
--- NOTE | 2025-07-19 10:31 | NUR ---
pt up in room, rn asked her if she would like to speak with [facility] to explore oppertunitys for community services. The staff member was already here and willing to visit her if she would like, she agreed. Romain from [facility] had some resources for them and they are calling back to speak about that at noon. jasmeet from [place] planning aware of visit. Mria here to visit pt and rn as well.
--- NOTE | 2025-07-19 10:45 | NUR ---
INTO SEE PATIENT. BOYFRIEND AT BEDSIDE. PATIENT WAS AGREEABLE TO SEE [facility] TO HEAR ABOUT MORE RESOURCES. LET HER KNOW SHE STILL HAS THE [facility]CS APPOINTMENT NEXT WEEK AND NEW PCP APPOINTMENT ESTABLISHED. [facility] COORDINATOR SILVANO CONTACTED. GOING TO CALL PATIENT TODAY AT SOME TIME TO GET HER RE ESTABLISHED.
--- NOTE | 2025-07-19 11:54 | NUR ---
PT WALKING AROUND IN ROOM, LUNCH TO BEDSIDE, ROOM AIR, REG RESP RATE, DENIES NEEDS, CALL LIGHT IN REACH.
--- NOTE | 2025-07-19 12:33 | NUR ---
pt restless, wants to go home - dr hirsch to bedside to talk with pt.
[2025-07-19] MEDS ORDERED: OXYCODONE HCL5 M1 PO (13:30)
--- NOTE | 2025-07-19 13:40 | NUR ---
iv x2 fusing abx, flush well but tender - pt requests iv stopped - no blood return - call to dr to change to po. pt up in chair. iv removed intact x2. call light in reach.
[2025-07-19] MEDS ORDERED: LINEZOLID600 MG PO (13:43)
[2025-07-19] MEDS ORDERED: CIPROFLOXACIN750 MG PO (13:44)
[2025-07-19] MEDS ORDERED: METRONIDAZOLE500 MG PO (13:44)
[2025-07-19] MEDS ORDERED: CIPROFLOXACIN 250 MG TAB PO ONE (13:45)
--- NOTE | 2025-07-19 16:24 | NUR ---
pt room cleaned - rn found a journal on couch and 2 rings in lock box. called pt and she is aware - pt thanked rn for helping her s/o to our [facility] clinc - pt and s/o on way to fill both rx at pharmacy. aware that items left are labeled and will be in safe, again pt was thankful.
== END 2025-07-19 14:45 | disposition home or self-care (01) | DRG 872 ==
LOC: ED 13:41 → MS 18:23 → CCU 18:23
PROVIDERS: Family Medicine; ADMIT Internal Medicine; ATTEND Internal Medicine
PROC: 3E03329 Introduction of Other Anti-infective into Peripheral Vein, Percutaneous Approach (ICD-10-PCS; 2025-07-15)
PROC: 30233N1 Transfusion of Nonautologous Red Blood Cells into Peripheral Vein, Percutaneous Approach (ICD-10-PCS; principal; 2025-07-17)
DX: A41.9 Sepsis, unspecified organism (principal); N12 Tubulo-interstitial nephritis, not specified as acute or chronic; Q61.3 Polycystic kidney, unspecified; E87.1 Hypo-osmolality and hyponatremia; F17.210 Nicotine dependence, cigarettes, uncomplicated; F12.90 Cannabis use, unspecified, uncomplicated; D63.1 Anemia in chronic kidney disease; N18.2 Chronic kidney disease, stage 2 (mild); E88.09 Other disorders of plasma-protein metabolism, not elsewhere classified; A59.01 Trichomonal vulvovaginitis; E83.42 Hypomagnesemia; Z89.021 Acquired absence of right finger(s); Z98.891 History of uterine scar from previous surgery; Z79.899 Other long term (current) drug therapy; Z79.2 Long term (current) use of antibiotics
CPT/HCPCS: 36415; 36592; 74176; 80048; 80053; 80074; 81001; 82728; 83550; 83605; 83690; 83735; 83921; 84100; 84134; 84703; 85025; 85045; 85060; 86140; 86850; 86900; 86901; 86922; 87040; 87088; 87491; 93005; 93010; A9270; J0696; J0878; J1720; J1956; J2060; J2185; J2270; J2405; J3475; J7030; J7070; P9016